=== PATIENT | male | born 2000 | race Caucasian/White ===

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

== ENCOUNTER 2021-10-31 09:23 | Emergency (ER) | payer OTHER ==
[~2021-10-31] VITALS: Ht 190.5 cm; Wt 68.0 kg
[~2021-10-31 09:23] MED LIST: TUSICOF CAPLET1 EACH PO; ZITHROMAX TRI-500 MG PO; ZOFRAN ODT4 MG PO
[2021-10-31] MEDS ORDERED: PROTONIX40 M1 PO (09:45)
[2021-10-31] MEDS ORDERED: VENLAFAXINE HCL75 M1 PO (09:46)
[2021-10-31] MEDS ORDERED: TRAZODONE HCL150 MG PO (09:46)
[2021-10-31] MEDS ORDERED: ZITHROMAX500 MG PO (14:21)
[2021-10-31] MEDS ORDERED: TUSSIN DM SYRU118 ML PO (14:21)
== END 2021-10-31 14:47 | disposition home or self-care (01) ==
LOC: ER 09:23
DX: B34.9 Viral infection, unspecified (principal); Z20.822 Contact with and (suspected) exposure to COVID-19

== ENCOUNTER 2022-09-20 12:34 | Emergency (ER) | payer OTHER ==
[~2022-09-20] VITALS: Ht 175.3 cm; Wt 72.6 kg
[~2022-09-20 12:34] MED LIST changes: +PROTONIX40 M1 PO; +TRAZODONE HCL150 MG PO; +TUSSIN DM SYRU118 ML PO; +VENLAFAXINE HCL75 M1 PO; +ZITHROMAX500 MG PO
[2022-09-20] MEDS ORDERED: ZOFRAN8 MG PO (21:10)
[2022-09-20] MEDS ORDERED: PEPCID AC20 MG PO (21:10)
[2022-09-20] MEDS ORDERED: LEVSIN/SL0.125 MG SL (21:10)
== END 2022-09-20 21:38 | disposition home or self-care (01) ==
LOC: ER 12:34
DX: K29.00 Acute gastritis without bleeding (principal); E86.0 Dehydration; Z20.822 Contact with and (suspected) exposure to COVID-19

== ENCOUNTER → 2025-06-17 | Emergency (ER) | payer OTHER ==
[~2025-06-17] VITALS: Ht 190.5 cm; Wt 72.6 kg
[~2025-06-17] MED LIST changes: +DEXAMETHASONE SODIUM PHOSPHATE 4 MG/ML VIAL IM ONE; +DEXAMETHASONE SODIUM PHOSPHATE 4 MG/ML VIAL ONE; +IBUPROFEN600 MG PO; +KETOROLAC TROMETHAMINE 60 MG VIAL IM ONE; +LEVSIN/SL0.125 MG SL; +PEPCID AC20 MG PO; +ZOFRAN8 MG PO
[2025-06-17 12:34] VITALS: BP 124/72; O2SAT 100
[2025-06-17 15:17] LABS: BASO % 0.5 % (0.1-1.2); EOS # 0.06 (0.04-0.54); EOS % 0.8 % (0.7-7.0); LYMPH # 2.04 (1.18-3.74); LYMPH % 27.6 % (19.3-53.1); MEAN PLATELET VOLUME 9.60 fl (9.4-12.4); MONO # 0.73 (0.24-0.82); MONO % 9.9 % (4.7-12.5); NEUT # 4.49 (1.56-6.13); NEUT % 60.8 % (34.0-71.1); RED CELL DISTRIBUTION WIDTH 12.6 % (11.6-14.4)
[2025-06-17 15:30] LABS: ERYTHROCYTE SEDIMENTATION RATE 4 mm/hr (0-15)
[2025-06-17 15:39] LABS: ALT/SGPT 22.0 U/L (12-78); AST/SGOT 12.0 U/L (15-37); BILIRUBIN TOTAL 0.3 mg/dL (0.3-1.2); BUN CREA RATIO 14.0 (7.0-25.0); CREATININE SERUM 1.06 mg/dL (0.70-1.30); GFR 85.83; GLOBULINA 3.3 G/DL (2.4-3.5); GLUCOSE FASTING 105.0 mg/dL (65-100); OSMOLALITY SERUM 284.0 MOSM/KG (275-295)
== END | disposition home or self-care (01) ==
LOC: ER 11:50
PROVIDERS: Preventive Medicine Public Health & General Preventive Medicine
DX: R59.0 Localized enlarged lymph nodes (principal)